=== PATIENT | male | born 1955 | race Caucasian/White ===

== ENCOUNTER 2018-11-14 13:32 | Emergency (ER) | payer OTHER ==
[2018-11-14 14:02] VITALS: BP 159/99; PULSE 90; TEMP 97.8; BMI 31.3
--- NOTE | 2018-11-14 14:13 | PDOC ---
History of Present Illness - General Chief Complaint: Injury Stated Complaint: R FINGER INJURY Time Seen by Provider: 11/14/18 13:45 - History of Present Illness Initial Comments: 11/14/18 14:36 63 years old no significant past medical history status post injury to his right pinky finger approximately 4 months ago with swelling and stiffness over the PIP joint. Patient tried to follow up with his doctor however was unable to and presented to the emergency department today. Swelling slightly decreased range of motion to the affected finger. Mild pain worse with movement. No fever no redness no swelling no change in symptoms over the last 4 months. Past History - Past Medical History Allergies/Adverse Reactions: Allergies Allergy/AdvReac Type Severity Reaction Status Date / Time No Known Allergies Allergy Verified 11/14/18 13:34 Home Medications: Ambulatory Orders Amlodipine Besylate/Benazepril [Lotrel 10-20 mg Capsule] 1 cap PO DAILY COPD: No HTN: Yes - Suicide/Smoking/Psychosocial Hx Smoking History: Never smoked Hx Alcohol Use: Yes (RARE) Drug/Substance Use Hx: No Review of Systems - Review of Systems Comments:: 11/14/18 14:37 ROS: A complete review of 10 out of 10 review of systems is taken and is negative apart from what is previously mentioned below and in the HPI. *Physical Exam - Vital Signs Last Vital Signs Temp Pulse Resp BP Pulse Ox 97.8 F 90 16 159/99 98 11/14/18 13:34 11/14/18 13:34 11/14/18 13:34 11/14/18 13:34 11/14/18 13:34 - Physical Exam Comments: Vitals: Triage Vital signs reviewed General Appearance: no acute distress, well nourished well developed, Head: Atraumatic, Extremities: Swelling noted over the PIP joint to the right fifth digit. No evidence of cellulitis. Decreased range of motion secondary to swelling. Skin: Warm and dry, no rashes or lesions, no rash, no petechiae Neuro: Sensation intact to all extremities,gait normal Psych: normal mood, normal affect Moderate Sedation - Procedure Monitoring Vital Signs: Procedure Monitoring Vital Signs Temperature 97.8 F 11/14/18 13:34 Pulse Rate 90 11/14/18 13:34 Respiratory Rate 16 11/14/18 13:34 Blood Pressure 159/99 03/11/19 13:34 O2 Sat by Pulse Oximetry (%) 98 11/14/18 13:34 ED Treatment Course - RADIOLOGY Radiology Studies Ordered: Category Date Time Status FINGER(S) RIGHT [RAD] Stat Radiology 11/14/18 14:12 Ordered Medical Decision Making - Medical Decision Making 11/14/18 14:42 No evidence of infection for month history of swelling and decreased range of motion status post injury to right pinky. X-ray demonstrates a likely healing fracture. We'll recommend hand follow-up Findings, the need for follow-up and strict return instructions discussed with patient. *DC/Admit/Observation/Transfer Diagnosis at time of Disposition: Finger fracture Qualifiers: Encounter type: initial encounter Finger: little finger Fracture type: closed Phalanx: proximal Fracture alignment: nondisplaced Laterality: right Qualified Code(s): S62.646A - Nondisplaced fracture of proximal phalanx of right little finger, initial encounter for closed fracture - Discharge Dispostion Disposition: HOME Condition at time of disposition: Good Decision to Admit order: No - Referrals Referrals: Joaquin Lorenzo MD [Staff Physician] - - Patient Instructions Printed Discharge Instructions: Finger Fracture Additional Instructions: Take [id number] Tylenol and Motrin for pain as needed as directed on package. Follow-up with Dr. Bj saldana this week. Return to ED for any concerns. - Post Discharge Activity
== END 2018-11-14 15:04 | disposition home or self-care (01) ==
LOC: FER 13:32
DX: S62.646A Nondisplaced fracture of proximal phalanx of right little finger, initial encounter for closed fracture (principal); I10 Essential (primary) hypertension
CPT/HCPCS: 73140-TC-RT-FY; 99281-25